=== PATIENT | female | born 1935 | race Caucasian/White ===

== ENCOUNTER → 2019-05-23 | Outpatient (CLI) | payer MEDICARE ==
[~2019-05-23] MED LIST: ALEVE220 M1 PO; ASPIRIN81 M1 PO; B12,B-12,B 12500 MC1 PO; GLUCOPHAGE500 M1 PO; LEVOTHYROXINE0.05 M1 PO; LEVOTHYROXINE0.05 MG PO; LISINOPRIL/HCTZ1 TA4 PO; LISINOPRIL10 M1 PO; LISINOPRIL2.5 MG PO; LISINOPRIL5 MG PO; NORITATE1% TP; POTASSIUM CHLO20 ME3 PO; PRAVASTATIN SOD20 MG PO; PRESERVISION L1 EACH PO; VITAMIN D1000 IU PO; ZOLOFT50 MG PO
== END | disposition home or self-care (01) ==
LOC: CARD 09:22
DX: I35.2 Nonrheumatic aortic (valve) stenosis with insufficiency (principal); R01.1 Cardiac murmur, unspecified

== ENCOUNTER 2023-01-20 13:09 | Emergency (ER) | payer MEDICARE, OTHER ==
[~2023-01-20] VITALS: Ht 157.4 cm; Wt 72.1 kg
[2023-01-20 14:09] LABS: BASO % 0.6 % (0.0-1.0); EOS # 0.1 10*3/uL (0.0-0.4); EOS % 1.6 % (1.0-4.0); HEMATOCRIT 39.1 % (37.0-47.0); LYMPH % 31.1 % (27.0-41.0); MEAN CELL VOLUME 89.1 fl (81.0-99.0); MEAN CORPUSCULAR HGB 30.5 pg (27.0-31.0); MEAN CORPUSCULAR HGB CONC 34.3 g/dl (33.0-37.0); MEAN PLATELET VOLUME 10.3 fl (9.6-12.3); MONO # 0.2 10*3/uL (0.1-1.0); MONO % 7.1 % (3.0-9.0); NEUT # 1.9 10*3/uL (2.3-7.9); NEUT % 59.3 % (47.0-73.0); PLATELET COUNT AUTOMATED 187 10*3/uL (130-400); RED BLOOD COUNT 4.39 10*6/uL (4.10-5.10); RED CELL DISTRI WIDTH 14.2 % (0-14.5); WHITE BLOOD COUNT 3.2 10*3/uL (4.8-10.8)
[2023-01-20 14:20] LABS: ACT PARTIAL THROMBO TIME 29.1 SECONDS (20.0-32.1)
[2023-01-20 14:25] LABS: ALKALINE PHOSPHATASE 77 U/L (46-116); BUN 42 mg/dl (9-23); CHLORIDE 101 mmol/L (98-107); POTASSIUM 4.2 mmol/L (3.4-5.1); SGPT/ALT 31 U/L (10-49); TOTAL PROTEIN 6.2 gm/dL (6.0-8.0)
== END 2023-01-20 16:21 | disposition home or self-care (01) ==
LOC: ED 13:09
PROVIDERS: Internal Medicine
DX: F41.9 Anxiety disorder, unspecified (principal); I10 Essential (primary) hypertension; Z88.0 Allergy status to penicillin; Z90.710 Acquired absence of both cervix and uterus; Z98.890 Other specified postprocedural states